=== PATIENT | female | born 1970 | race African-American/Black ===

== ENCOUNTER → 2023-07-10 | Outpatient (CLI) | payer MEDICARE ==
[2023-07-10 15:10] VITALS: BP 169/101; PULSE 79; RESP 16; TEMP 98.3; BMI 53.2
--- NOTE | 2023-07-10 15:32 | P.HPBAR ---
Bariatric H&P - History & Physicial H&P Date: 07/10/23 History & Physicial: Visit/CC: Initial Consult Patient initial contact: Initial weight: 145.15 kg Initial weight in pounds: 320.00 Height: 5 ft 5 in Initial BMI: 53.2 Last weight: Current weight: 145.15 kg Current weight in pounds: 320.00 Current BMI: 53.2 [place] body weight (based on NIH guidelines): 56.699 kg Excess body weight loss: 0.0% The patient is a 52 year-old F who presents for Bariatric Assessment. Patient here to discuss weight loss surgery. She is interested in sleeve gastrectomy. She is here today with her daughter. BMI today is 53. Suffers from hypertension, hypercholesterolemia, joint pain. Did well with Mounjaro and lost 30 pounds but unfortunately gained it all back. Denies GERD. No tobacco use. No history of DVT or dysphagia. No recent EGD. Patient states she had a recent stress test and EKG that was normal. Surgical history includes hysterectomy and knee surgery. No known hernias. Review of Systems The patient denies any acute changes in vision or hearing, no dysphagia or odynophagia, no chest pain or shortness of breath, no dysuria or hematuria, no headache, no runny nose, no rectal bleeding or melena, no unexplained weight loss Past Medical History Smoking Status: Unknown if ever smoked Surgical - Exam Vital Signs Temp Pulse Resp BP 98.3 F 79 16 169/101 07/10/23 14:21 07/10/23 14:21 07/10/23 14:21 07/10/23 14:21 Physical exam: General: Well-developed, well-nourished HEENT: Normocephalic, sclerae nonicteric Abdomen: Nontender, nondistended Extremities: No edema Neuro: Alert and oriented Bariatric Assessment & Plan (1) Morbid obesity with BMI of 50.0-59.9, adult Narrative/Plan: 52-year-old female with morbid obesity and associated comorbidities. Patient is interested in sleeve gastrectomy. Patient and I discussed the surgical options including both sleeve gastrectomy and bypass in detail. Risks and benefits reviewed as well. Will proceed with upper endoscopy preoperatively. Will obtain medical clearance and medical support documentation. Status: Acute Bariatric Checklist Checklist: Plan: Checklist: EGD: 1. Hiatal hernia: 2. H. Pylori: HgbA1c: Vitamin D: Smoking: Primary care physician referral: Psychiatry clearance: Cardiology clearance: Sleep study: Diet journal: VTE risk score: VTE risk level: Rehab needs at discharge:
[2023-07-10 19:17] LABS: HCT 39.9 % (37.2-46.3); HGB 12.2 g/dL (12.0-15.0); MCH 26.7 pg (27.0-32.0); MCHC 30.6 g/dL (32.0-37.0); MCV 87.3 FL (80.0-97.0); Mean Platelet Volume 10.2 FL (9.5-12.2); NRBC Per 100 WBC 0 X 10*3/uL (0.00-0.01); Platelet Count 247 X 10*3/uL (140-440); RBC 4.57 X 10*6/uL (4.10-5.20); RDW 15.3 % (11.5-14.5)
[2023-07-10 19:57] LABS: ALT 17 U/L (8-44); AST 21 U/L (13-35); Albumin 3.8 g/dL (3.8-4.9); Albumin/Globulin Ratio 1.23 Ratio (1.60-3.17); Alkaline Phosphatase 76 U/L (41-126); BUN/Creat Ratio 22.57 Ratio (12.00-20.00); Blood Urea Nitrogen 15.8 mg/dL (9.0-27.0); Calcium 9.8 mg/dL (8.7-10.3); Carbon Dioxide 27.3 mmol/L (21.6-31.8); Chloride 106 mmol/L (96-109); Globulin 3.1 g/dL (1.6-3.3); Glucose 80 mg/dL (70-110); Iron 53 UG/DL (50-170); Potassium 3.5 mmol/L (3.5-5.5); Sodium 144 mmol/L (135-145); Total Bilirubin <0.2 mg/dL (0.3-1.2); Total Protein 6.9 g/dL (6.2-8.2)
[2023-07-12 13:53] LABS: Anabasine Urine <2.0 ng/mL (<2.0)
== END ==
LOC: BARWHC3 13:36
PROVIDERS: ATTEND Surgery
DX: E66.01 Morbid (severe) obesity due to excess calories (principal); K90.89 Other intestinal malabsorption; E55.9 Vitamin D deficiency, unspecified; Z90.710 Acquired absence of both cervix and uterus; Z98.890 Other specified postprocedural states; Z68.43 Body mass index [BMI] 50.0-59.9, adult
CPT/HCPCS: 84425; 80053; 82607; 82746; 83540; 85027; 82306; 83036; 93005; G0480; G0463; 80323; 99212

== ENCOUNTER 2023-10-21 09:45 | Day surgery (SDC) | payer MEDICARE ==
[~2023-10-21 09:45] MED LIST: LACTATED RINGERS 1,000 ML BAG ONE; LIDOCAINE HCL/PF 20 MG/ML 10 ML AMP ONE; PROPOFOL 10 MG/ML 20 ML VIAL IV ONE
--- NOTE | 2023-10-24 15:56 | PCN ---
PROCEDURE NOTE PREOPERATIVE DIAGNOSIS: Gastroesophageal reflux disease, presurgical. POSTOPERATIVE DIAGNOSES: 1. Gastritis with erosions. 2. Small hiatal hernia. PROCEDURE: Esophagogastroduodenoscopy with biopsy. ANESTHESIA: Sedation. COMPLICATIONS: None. OPERATIVE PROCEDURE: The patient was brought and placed on the operating table in left decubitus position. The patient was sedated per Anesthesia at that time. The Olympus gastroscope was inserted through the oropharynx and passed under direct visualization to the 3rd portion of the duodenum. At that point, we slowly withdrew the scope, inspecting all surfaces carefully. There were no neoplastic, inflammatory, or polypoid lesions seen throughout the duodenum. The pylorus was widely patent. The scope was carefully inspected including retroflexion. In the antrum, there was noted to be gastritis with a few small superficial erosions. Biopsy was taken. Retroflexion revealed normal- appearing hiatus. When the scope was withdrawn into the esophagus; however, a small 1 cm hiatal hernia was seen. The GE junction was normal. The remainder of the esophagus appeared normal. PLAN: 1. Resume diet. 2. Await results. 3. Begin antiplatelet therapy. 4. Follow up in bariatric center. MMODL / IJN: [id number] /
== END 2023-10-21 09:56 ==
LOC: ORWHC2ENDO 09:45
PROVIDERS: ATTEND Surgery
DX: K29.50 Unspecified chronic gastritis without bleeding (principal); B96.81 Helicobacter pylori [H. pylori] as the cause of diseases classified elsewhere; K21.9 Gastro-esophageal reflux disease without esophagitis; K44.9 Diaphragmatic hernia without obstruction or gangrene; I10 Essential (primary) hypertension; E78.5 Hyperlipidemia, unspecified; E07.9 Disorder of thyroid, unspecified; Z79.899 Other long term (current) drug therapy
CPT/HCPCS: 43239; 88305; 88342

== ENCOUNTER → 2023-11-11 | Outpatient (CLI) | payer MEDICARE ==
--- NOTE | 2023-11-11 15:03 | P.BASOAP ---
Subjective Progress Note Date: 11/11/23 Principal diagnosis: Morbid obesity Patient returns for recheck. Underwent recent EGD showing gastritis with erosions and small hiatal hernia. Biopsies show H. pylori. Patient's daughter also had H. pylori. Otherwise doing well. Started her antibiotic regimen 2 days ago. Objective - Exam Abdomen: Soft, nontender, nondistended Assessment/Plan (1) Morbid obesity with BMI of 50.0-59.9, adult Narrative/Plan: 53-year-old female doing well after recent EGD. Pathology findings reviewed. Continue H. pylori treatment. Plan rechecking urea breath test 2 [address] completion of medications. We reviewed the surgical consent form for laparoscopic robotic assisted sleeve gastrectomy. All questions answered. Patient is agreeable with proceeding with surgery after H. pylori clear. Continue antiacids for gastritis. The risks of bleeding, infection, stenosis, stricture, leak, abscess, fistula formation, peritonitis, poor weight loss, reflux, vomiting, conversion to an open procedure, aborting sleeve gastrectomy, [place], PE, DVT, and were discussed. The patient understands and wishes to proceed. Plan: Date: Initial Weight: 145.15 kg Initial BMI: Current Weight: Current BMI: Type of Surgery: Total Volume in Band: Previous Volume: Volume Removed: Volume Added: Band Size:
[2023-11-12 08:23] VITALS: BP 134/85; PULSE 34; TEMP 97.2; BMI 52.7
== END ==
LOC: BARWHC3 14:32
PROVIDERS: ATTEND Surgery
CPT/HCPCS: 99211

== ENCOUNTER → 2023-12-10 | Outpatient (CLI) | payer MEDICARE ==
[2023-12-10 10:24] VITALS: BMI 51.7
[2023-12-10 10:28] VITALS: BP 119/84; PULSE 74; RESP 16; TEMP 98
== END ==
LOC: BARWHC3 10:08
PROVIDERS: ATTEND Surgery
DX: E66.01 Morbid (severe) obesity due to excess calories (principal); Z91.013 Allergy to seafood; Z68.43 Body mass index [BMI] 50.0-59.9, adult
CPT/HCPCS: 99211

== ENCOUNTER → 2024-01-27 | Outpatient (CLI) | payer MEDICARE ==
[2024-01-28 02:36] LABS: Basophils # (A) 0.02 X 10*3/uL (0.00-0.10); Basophils % (A) 0.3 %; Eosinophils # (A) 0.05 X 10*3/uL (0.04-0.35); Eosinophils % (A) 0.7 %; HCT 42.7 % (37.2-46.3); HGB 13.1 g/dL (12.0-15.0); Lymphocytes # (A) 2.06 X 10*3/uL (0.90-5.00); Lymphocytes % (A) 29.4 %; MCH 26.7 pg (27.0-32.0); MCHC 30.7 g/dL (32.0-37.0); MCV 87.1 FL (80.0-97.0); Mean Platelet Volume 10.7 FL (9.5-12.2); Monocytes # (A) 0.46 X 10*3/uL (0.20-1.00); Monocytes % (A) 6.6 %; NRBC Per 100 WBC 0 X 10*3/uL (0.00-0.01); Neutrophils # (A) 4.39 X 10*3/uL (1.80-7.70); Neutrophils % (A) 62.7 %; Platelet Count 288 X 10*3/uL (140-440); RDW 14.7 % (11.5-14.5)
[2024-01-28 02:59] LABS: ALT 18 U/L (8-44); AST 15 U/L (13-35); Albumin/Globulin Ratio 1.14 Ratio (1.60-3.17); Alkaline Phosphatase 83 U/L (41-126); BUN/Creat Ratio 14.82 Ratio (12.00-20.00); Blood Urea Nitrogen 16.3 mg/dL (9.0-27.0); Calcium 9.7 mg/dL (8.7-10.3); Chloride 103 mmol/L (96-109); Globulin 3.5 g/dL (1.6-3.3); Glucose 101 mg/dL (70-110); Potassium 3.4 mmol/L (3.5-5.5); Sodium 145 mmol/L (135-145); Total Bilirubin 0.2 mg/dL (0.3-1.2); Total Protein 7.5 g/dL (6.2-8.2)
== END | disposition home or self-care (01) ==
LOC: LABWHC1 16:34
PROVIDERS: ATTEND Surgery
DX: Z01.812 Encounter for preprocedural laboratory examination (principal)
CPT/HCPCS: 80053; 85025; 86850; 86900; 86901

== ENCOUNTER 2024-02-02 13:07 | Inpatient (IN) | payer MEDICARE ==
[2024-02-02] MEDS: IV FLUID CONTINUATION 1,000 ML IV ONE (13:35)
[2024-02-02] MEDS: ENOXAPARIN 40 MG/0.4 ML SYRINGE SQ PRN (13:51)
[2024-02-02] MEDS: ONDANSETRON 4 MG/2 ML VIAL IVP PRN ×2 (13:51→18:24)
[2024-02-02] MEDS: ACETAMINOPHEN TAB 500 MG TAB PO PRN (13:51)
[2024-02-02] MEDS: LACTATED RINGERS 1,000 ML BAG IV STA (13:52)
[2024-02-02] MEDS: DEXAMETHASONE SOD PHOSPHATE 4 MG/ML 1 ML VIAL IVP STA (13:52)
--- NOTE | 2024-02-02 13:53 | P.GSHP ---
History of Present Illness H&P Date: 02/02/24 Chief Complaint: Morbid obesity 53-year-old female here for elective laparoscopic sleeve gastrectomy. Patient was first seen in the bariatric center in July. Patient with complaints of hypertension, hypercholesterolemia, joint pain. Patient during recent EGD found to have a small hiatal hernia. She was treated for H. pylori positivity. Non- smoker. BMI 53 when first seen. Today BMI 50. Past Medical History Past Medical History: Hyperlipidemia, Hypertension Additional Past Medical History / Comment(s): ANEMIA PRIOR AND POST HYSTERECTOMY, NO CURRENT ISSUES. History of Any Multi-Drug Resistant Organisms: None Reported Past Surgical History: Hysterectomy, Orthopedic Surgery Additional Past Surgical History / Comment(s): Bilateral arthroscopic knee surgery. Past Anesthesia/Blood Transfusion Reactions: No Reported Reaction Additional Past Anesthesia/Blood Transfusion Reaction / Comment(s): Has had blood transfusion, no reactions. Smoking Status: Never smoker - Past Family History Father Family Medical History: Hypertension Medications and Allergies Home Medications Medication Instructions Recorded Confirmed Type Atorvastatin [Lipitor] 20 mg PO HS 07/23/23 02/02/24 History Ibuprofen [Advil] 200 - 400 mg PO Q6H PRN 08/22/23 01/26/24 History hydroCHLOROthiazide 12.5 mg PO HS 01/26/24 02/02/24 History Allergies Allergy/AdvReac Type Severity Reaction Status Date / Time shellfish derived [Shellfish] Allergy Swelling Verified 02/02/24 13:30 Surgical - Exam Vital Signs Temp Pulse Resp BP Pulse Ox 97.3 F L 87 18 148/90 100 02/02/24 13:30 02/02/24 13:30 02/02/24 13:30 02/02/24 13:30 02/02/24 13:30 Physical exam: General: Well-developed, well-nourished HEENT: Normocephalic, sclerae nonicteric Abdomen: Nontender, nondistended Extremities: No edema Neuro: Alert and oriented Assessment and Plan (1) Morbid obesity with BMI of 50.0-59.9, adult Narrative/Plan: 53-year-old female with morbid obesity. BMI 50. Will proceed with laparoscopic da Ronnell assisted sleeve gastrectomy, possible hiatal hernia repair, possible open at this time. The risks of bleeding, infection, stenosis, stricture, leak, abscess, fistula formation, peritonitis, poor weight loss, reflux, vomiting, conversion to an open procedure, aborting sleeve gastrectomy, [place], PE, DVT, and were discussed. The patient understands and wishes to proceed. Current Visit: No Status: Acute Code(s): E66.01 - MORBID (SEVERE) OBESITY DUE TO EXCESS CALORIES; Z68.43 - BODY MASS INDEX [BMI] 50.0-59.9, ADULT SNOMED Code(s): 943755944
[2024-02-02] MEDS ORDERED: NEOSTIGMINE 1 MG/ML 10 ML VIAL ONE (14:21)
[2024-02-02] MEDS ORDERED: GLYCOPYRROLATE 0.2 MG/ML 2 ML VIAL ONE (14:21)
[2024-02-02] MEDS ORDERED: PROPOFOL 10 MG/ML 20 ML VIAL IV ONE (14:21)
[2024-02-02] MEDS ORDERED: ROCURONIUM 10 MG/ML (5 ML VIAL) IV ONE (14:21)
[2024-02-02] MEDS ORDERED: fentaNYL (PF) 50 MCG/ML 2 ML AMP ONE (14:21)
[2024-02-02] MEDS ORDERED: SUCCINYLCHOLINE CHLORIDE 200 MG/10 ML VIAL IV ONE (14:21)
[2024-02-02] MEDS ORDERED: LIDOCAINE 1% INJ 10MG/ML (20 ML MDV) ONE (14:21)
[2024-02-02] MEDS ORDERED: MIDAZOLAM 2 MG/2 ML VIAL ONE (14:21)
[2024-02-02] MEDS: ceFAZolin 3 GM in SODIUM CHLORIDE 0.9% 100 ML IVPB PRN (14:23)
[2024-02-02] MEDS: BUPIVACAINE (PF) 0.25% 30 ML VIAL SQ ONE (14:44)
[2024-02-02] MEDS: LACTATED RINGERS 1,000 ML IV ONE (16:06)
[2024-02-02] MEDS ORDERED: NALOXONE 0.4 MG/ML 1 ML VIAL IV PRN (16:35)
[2024-02-02] MEDS ORDERED: diphenhydrAMINE 50 MG/ML 1 ML VIAL IVP PRN (16:35)
--- NOTE | 2024-02-02 16:43 | P.OP ---
Date of Procedure: 02/02/24 Procedure(s) Performed: PREOPERATIVE DIAGNOSIS: Morbid obesity, hypertension, hiatal hernia POSTOPERATIVE DIAGNOSIS: Same PROCEDURE: Da Ronnell assisted laparoscopic sleeve gastrectomy with repair hiatal hernia SURGEON: Beny EBL: Minimal ANESTHESIA: General COMPLICATIONS: None OPERATIVE PROCEDURE: Patient was placed in the operating table in the supine position. The patient was then placed under general anesthesia at that time. The abdomen was prepped and draped in the usual sterile fashion. A 5 mm optical trocar was placed in the left upper quadrant 20 cm inferior to the xiphoid process. Insufflation took place up to 15 mmHg. No adhesions were seen. A 5 mm subxiphoid incision was made and the medium Amado retractor was used to elevate the left lobe of liver anteriorly. This was held in place using the fixed arm retractor. An additional 12 mm trocar was placed in the right paramedian location and 2 additional 8 mm trochars were placed in the left upper quadrant one medial and one lateral to the initially placed optical trocar. All of these trochars were placed along the same plane. The initial 5 was then switched to an 8 mm trocar. The robot was then docked appropriately. The 8 mm camera was placed in the left paramedian trocar site down viewing. A fenestrated bipolar was placed in arm 1, arm 3 had the vessel sealer, arm 4 had the small grasper retractor. At that point I moved to the distal aspect of the greater curvature the stomach. The short gastric vasculature were divided using the vessel sealer. This dissection took place distally until we were 4 cm from the pylorus. The posterior adhesions were divided as well. The dissection then took place proximally along the stomach until the posterior short gastrics were divided and the fundus of the stomach was fully mobilized. Following that the hiatal hernia was addressed. This was a small sliding hiatal hernia. The GE junction was present very close to the diaphragmatic hiatus. Circumferentially the phrenoesophageal ligament was divided. Blunt dissection mobilized the distal aspect of the esophagus. Both adonis posteriorly were well-visualized at this point. I opted to close the crura after completion of the sleeve gastrectomy. The blunt tipped 40-Portuguese bougie dilator was advanced into the stomach and advanced all the way to the prepyloric location. The patient's stomach by palpation seemed to be of average thickness. The first firing of the stapler was a green load 60. Second load was a blue load 60. The next 3 loads were blue load 60 with seam guard. There was a small less than 1 cm section was then divided using a white load stapler. The stomach was placed in the right upper quadrant. The dilator was removed. The oral gastric tube was reinserted. The stomach was insufflated with approximately 100 mL of methylene blue. No evidence of leak or obstruction was seen. Pressure was then dropped to 8 mm for 2-3 minutes. The staple line was inspected and 2 small areas of oozing was identified and controlled using the bipolar cautery. No further bleeding was seen. Next the crura was reapproximated posteriorly using a short running 2 oh V-Loc suture nonabsorbable. Tisseel fibrin glue was then used along the length of the staple line and hiatus. The robot was then undocked. The da Ronnell laparoscope was used and the stomach was removed from the 12 mm trocar site without difficulty. That area was then irrigated with saline. The fascia at the 12mm site was closed using [id number] 0 Vicryl sutures with the laparoscopic suture passer and Gurjit Poornima technique. The insufflation was evacuated. The skin at all 5 incisions were closed using 4-0 Monocryl sutures. Skin glue was then applied. DISPOSITION: Stable to recovery room
[2024-02-02] MEDS: HYDROmorphone 0.5 MG/0.5 ML SYRINGE IVP PRN (17:05)
[2024-02-02] MEDS: LACTATED RINGERS 1,000 ML IV SCH (17:20)
[2024-02-02] MEDS: DEXAMETHASONE SOD PHOSPHATE 4 MG/ML 1 ML VIAL IV ONE (18:02)
[2024-02-02] MEDS: ONDANSETRON 4 MG/2 ML VIAL IVP ONE (18:02)
[2024-02-02] MEDS: HYDROmorphone 1 MG/ML 1 ML SYRINGE IVP PRN (18:27)
[2024-02-02] MEDS: ACETAMINOPHEN IV (For NPO) 1,000 MG in EMPTY BAG 1 BAG IVPB SCH (18:32)
[2024-02-02] MEDS: ALBUTEROL NEBULIZED 2.5 MG/3 ML INHALATION SCH (21:08)
[2024-02-02] MEDS: 0.9% NACL WITH KCL 20 MEQ/L 1,000 ML IV SCH (21:13)
[2024-02-02] MEDS: DEXAMETHASONE SOD PHOSPHATE 4 MG/ML 1 ML VIAL IVP SCH (23:39)
[2024-02-03] MEDS: SIMETHICONE 40 MG/0.6 ML DROPS 2,000 MG/30 ML BOTTLE PO PRN (04:49)
[2024-02-03] MEDS: ENOXAPARIN 40 MG/0.4 ML SYRINGE SQ SCH (05:59)
[2024-02-03] MEDS: PANTOPRAZOLE 40 MG/10 ML VIAL IV SCH (07:31)
[2024-02-03] MEDS: 0.9% NACL WITH KCL 20 MEQ/L 1,000 ML IV SCH (07:31)
[2024-02-03 08:20] LABS: African American GFR (CKD) >90 (>60 ml/min/1.73 sqM); Anion Gap 6 mmol/L; Blood Urea Nitrogen 15 mg/dL (7-17); Carbon Dioxide 30 mmol/L (22-30); Chloride 101 mmol/L (98-107); Magnesium 1.7 mg/dL (1.6-2.3); Non-African American GFR(CKD) >90 (>60 ml/min/1.73 sqM); Potassium 4.1 mmol/L (3.5-5.1); Sodium 137 mmol/L (137-145)
[2024-02-03 10:16] LABS: Basophils # (A) 0.01 X 10*3/uL (0.00-0.10); Basophils % (A) 0.1 %; Eosinophils # (A) 0 X 10*3/uL (0.04-0.35); Eosinophils % (A) 0 %; HCT 40.8 % (37.2-46.3); HGB 12.6 g/dL (12.0-15.0); Lymphocytes # (A) 0.53 X 10*3/uL (0.90-5.00); Lymphocytes % (A) 5.2 %; MCH 26.3 pg (27.0-32.0); MCHC 30.9 g/dL (32.0-37.0); MCV 85.2 FL (80.0-97.0); Mean Platelet Volume 10.3 FL (9.5-12.2); Monocytes # (A) 0.12 X 10*3/uL (0.20-1.00); Monocytes % (A) 1.2 %; NRBC Per 100 WBC 0 X 10*3/uL (0.00-0.01); Neutrophils # (A) 9.56 X 10*3/uL (1.80-7.70); Neutrophils % (A) 93.1 %; Platelet Count 291 X 10*3/uL (140-440); RBC 4.79 X 10*6/uL (4.10-5.20); RDW 14.1 % (11.5-14.5); WBC 10.26 X 10*3/uL (4.50-10.00)
--- NOTE | 2024-02-03 10:20 | P.CONS ---
History of Present Illness - Reason for Consult Consult date: 02/03/24 Medical management - Chief Complaint Laparoscopic sleeve gastrectomy - History of Present Illness Patient is a 53-year-old female with known history of hypertension, hyperlipidemia, morbid obesity, anemia with history of hysterectomy and bilateral arthroscopic knee surgery. Patient was admitted to hospital for elective sleeve gastrectomy.. Patient is status post da Ronnell assisted laparoscopic sleeve gastrectomy with repair of hiatal hernia. Patient tolerated procedure well. Currently does have minimal nausea. Started on liquid diet. No complaints of chest pain or shortness breath. Pain is controlled. No fever no chills. Blood pressure 126/83 pulse 70 respiration 15 and pulse ox 94% on room air. Laboratory data showed WBC 10.2 hemoglobin 12.6 and platelets 291 sodium 137 potassium 4.1 chloride 101 bicarb is 13 BUN 15 and creatinine 0.72 and magnesium 1.7. Patient is receiving Decadron 4 mg IV every 6 hourly. Review of Systems Constitutional: Patient denies any fever or chills . No generalized weakness or weight loss. Abdomen: Patient does have nausea. No vomiting. No complaints of abdominal pain. Cardiovascular: Patient denies any chest pain or short of breath no palpitations. Respiratory: patient denied any cough or sputum production. No shortness of breath Neurologic: Patient denied any numbness or tingling. no headache. Musculoskeletal: Patient denies any complaints of joint swelling or deformity. Skin: Negative Psychiatric: Negative Endocrine: No heat or cold intolerance. No recent weight gain. Genitourinary: No dysuria or hematuria. All other 14 point ROS negative except the above Past Medical History Past Medical History: Hyperlipidemia, Hypertension Additional Past Medical History / Comment(s): ANEMIA PRIOR AND POST HYSTERECTOMY, NO CURRENT ISSUES. History of Any Multi-Drug Resistant Organisms: None Reported Past Surgical History: Hysterectomy, Orthopedic Surgery Additional Past Surgical History / Comment(s): Bilateral arthroscopic knee surgery. Past Anesthesia/Blood Transfusion Reactions: No Reported Reaction Additional Past Anesthesia/Blood Transfusion Reaction / Comm: Has had blood transfusion, no reactions. Past Psychological History: No Psychological Hx Reported Smoking Status: Never smoker Past Alcohol Use History: None Reported Past Drug Use History: None Reported - Past Family History Father Family Medical History: Hypertension Medications and Allergies Home Medications Medication Instructions Recorded Confirmed Type Atorvastatin [Lipitor] 20 mg PO HS 07/23/23 02/02/24 History Ibuprofen [Advil] 200 - 400 mg PO Q6H PRN 08/22/23 01/26/24 History hydroCHLOROthiazide 12.5 mg PO HS 01/26/24 02/02/24 History Allergies Allergy/AdvReac Type Severity Reaction Status Date / Time shellfish derived [Shellfish] Allergy Swelling Verified 02/02/24 13:30 Physical Exam Vitals: Vital Signs Temp Pulse Pulse Resp BP Pulse Ox FiO2 02/03/24 07:57 98 21 02/03/24 07:27 97.8 F 87 15 144/88 97 02/03/24 02:31 138/89 02/03/24 01:35 97.4 F L 100 16 161/110 100 02/02/24 20:22 101 H 137/90 96 02/02/24 20:07 98 142/91 97 02/02/24 19:52 98 144/91 95 02/02/24 19:37 95 157/100 97 02/02/24 19:22 101 H 154/95 96 02/02/24 19:07 99 150/92 96 02/02/24 18:52 94 160/98 98 02/02/24 18:37 99 159/95 97 02/02/24 18:24 94 159/96 60 L 02/02/24 18:22 97.3 F L 95 168/114 100 02/02/24 18:00 99 17 157/83 98 02/02/24 17:45 94 16 160/86 98 02/02/24 17:30 96 17 159/85 98 02/02/24 17:18 97.3 F L 95 18 159/96 99 02/02/24 17:15 94 18 158/87 97 02/02/24 17:00 96 16 155/79 100 02/02/24 16:49 98.6 F 102 H 14 148/90 100 02/02/24 13:30 97.3 F L 87 18 148/90 100 Intake and Output 02/02/24 02/03/24 02/03/24 22:59 06:59 14:59 Intake Total 100 Output Total 20 Balance 80 Intake: IV 100 Output: Estimated Blood Loss 20 Other: # Voids 1 2 Weight 137.3 kg PHYSICAL EXAMINATION: Patient is lying in the bed comfortably, no acute distress, awake alert and oriented.. HEENT: Normocephalic. Neck is supple. Pupils reactive. Nostrils clear. Oral cavity is moist. Neck reveals no JVD, carotid bruits, or thyromegaly. CHEST EXAMINATION: Trachea is central. Symmetrical expansion. Bibasilar diminished sounds otherwise lung english clear to auscultation and percussion. CARDIAC: Normal S1, S2 with no gallops. No murmurs ABDOMEN: Soft. Bowel sounds normal. No organomegaly. No abdominal bruits. Extremities: reveal no edema. No clubbing or cyanosis Neurologically awake, alert, oriented x3 with well-coordinated movements. No focal deficits noted Skin: No rash or skin lesions. Psychiatric: Coperative. Nonsuicidal Musculoskeletal: No joint swelling or deformity. Normal range of motion. Results CBC & Chem 7: 02/03/24 07:22 02/03/24 07:22 Labs: Abnormal Lab Results - Last 24 Hours (Table) 02/03/24 Range/Units 07:22 WBC 10.26 H (4.50-10.00) X 10*3/uL MCH 26.3 L (27.0-32.0) pg MCHC 30.9 L (32.0-37.0) g/dL Neutrophils # 9.56 H (1.80-7.70) X 10*3/uL Lymphocytes # 0.53 L (0.90-5.00) X 10*3/uL Monocytes # 0.12 L (0.20-1.00) X 10*3/uL Eosinophils # 0 L (0.04-0.35) X 10*3/uL Assessment and Plan Assessment: Status post da Ronnell assisted laparoscopic sleeve gastrectomy with repair of h iatal hernia. Postoperative day 1 Mild leukocytosis likely postsurgical in remission Hypertension. Controlled. Morbid obesity BMI 50.4 GI and DVT prophylaxis as per primary team Plan: Patient will be continued on IV hydration. Symptomatic management for nausea. Pain management. Patient is currently tolerating clear liquid diet. Encourage incentive spirometry. Will hold hydrochlorothiazide until patient tolerates oral diet. Continue to monitor blood pressure closely. Restarted Lipitor. Will continue to follow and further recommendations based on clinical course. Thank you kindly for your consult.
[2024-02-03] MEDS: KETOROLAC 15 MG/ML 1 ML VIAL IVP SCH (10:22)
[2024-02-03] MEDS: SIMETHICONE 40 MG/0.6 ML DROPS 2,000 MG/30 ML BOTTLE PO SCH (10:23)
--- NOTE | 2024-02-03 10:28 | FL ---
EXAMINATION TYPE: FL UGI DATE OF EXAM: 02/03/2024 COMPARISON: None CLINICAL INDICATION: Female, 53 years old with history of Post Op Bariatric Surgery; [facility], reported sl eeve gastrectomy and hiatal hernia repair TECHNIQUE: A single contrast UGI study is performed with 50 mL Isovue 370 contrast. A total of 1 mi nute 19 seconds of fluoroscopic time was utilized during procedure and 16 images obtained. Total dose area product (DAP) in uGy*m?, mGy*cm? (or similar): 9-3.2. FINDINGS: No evidence for free intraperitoneal air. The patient swallowed oral contrast without difficulty or delay. There is prompt passage of contrast from the esophagus into the stomach with postsurgical change of sleeve gastrectomy demonstrated. Ther e is no obstruction. No residual hiatal hernia seen. No extravasation of contrast to suggest leak. There is progressive accumulation of contrast in the st omach but with delayed passage into the duodenum. A 5 minute post procedure radiograph shows adequate passage into the proximal small bowel loops. IMPRESSION: Status post sleeve gastrectomy and hiatal hernia repair. No evidence for obstruction or leak. No free air. [facility], , 02/03/2024 10:26 AM
[2024-02-03] MEDS: SCOPOLAMINE 1 MG/72 HR PATCH TRANSDERM SCH (10:33)
--- NOTE | 2024-02-03 11:25 | P.PN ---
Subjective Progress Note Date: 02/03/24 SURGICAL PROGRESS NOTE CHIEF COMPLAINT: Morbid obesity HISTORY OF PRESENT ILLNESS: Postop day #1 status post laparoscopic sleeve gastrectomy with repair of hiatal hernia. Patient complains of epigastric pain with nausea. She reports having dry heaves last night. That has improved. No flatus. She did ambulate in the hallway. Denies any difficulty urinating. Afebrile. Mild tachycardia at night now improved. WBC 10.26 Hgb 12.6 platelets 291 sodium 137 potassium 4.1 creatinine 0.72 magnesium 1.7. Upper GI completed reported no evidence of obstruction or leak PHYSICAL EXAM: VITAL SIGNS: Reviewed. GENERAL: Well-developed in no acute distress. ABDOMEN: Soft. Nondistended. Epigastric tenderness. Incision sites clean dry and intact NEUROLOGIC: Alert and oriented. Cranial nerves II through XII grossly intact. ASSESSMENT: 1. Morbid obesity, hypertension and hiatal hernia PLAN: -Advance diet to bariatric clears -Continue IV fluids -Scopolamine patch added for nausea -Toradol scheduled added for pain -Gas drops changed to scheduled to help with pain -Encourage patient to ambulate -Encourage patient to use incentive spirometer -DVT prophylaxis Lovenox and GI prophylaxis Protonix Physician Stave Machine Tender note has been reviewed by physician. Signing provider agrees with the documented findings, assessment, and plan of care. I have personally seen and examined the patient, reviewed the MICROWAVE SUPERVISOR /PAs history, exam and MDM and agree with the assessment and plan as written. Based on total visit time, I have performed more than 50% of the visit. As above: Patient doing better now. Had some discomfort and nausea overnight. Labs noted. Patient's upper GI shows no leak or obstruction. Tolerating liquids now. She was ambulating in the hallways. Keep overnight. Continue IV hydration. Continue bariatric clears. Objective - Vital Signs Vital signs: Vital Signs Temp 97.8 F 02/03/24 07:27 Pulse 87 02/03/24 07:27 Resp 15 02/03/24 07:27 BP 144/88 02/03/24 07:27 Pulse Ox 98 02/03/24 07:57 FiO2 21 02/03/24 07:57 Intake & Output 02/02/24 02/03/24 02/03/24 18:59 06:59 18:59 Intake Total 1600 Output Total 20 Balance 1580 Weight 137.3 kg Intake: IV 1600 Output: Estimated Blood Loss 20 Other: # Voids 1 2 - Labs CBC & Chem 7: 02/03/24 07:22 02/03/24 07:22 Labs: Abnormal Lab Results - Last 24 Hours (Table) 02/03/24 Range/Units 07:22 WBC 10.26 H (4.50-10.00) X 10*3/uL MCH 26.3 L (27.0-32.0) pg MCHC 30.9 L (32.0-37.0) g/dL Neutrophils # 9.56 H (1.80-7.70) X 10*3/uL Lymphocytes # 0.53 L (0.90-5.00) X 10*3/uL Monocytes # 0.12 L (0.20-1.00) X 10*3/uL Eosinophils # 0 L (0.04-0.35) X 10*3/uL
[2024-02-03] MEDS: HYOSCYAMINE ORAL DROPS 1.875 MG/15 ML BOTTLE PO PRN (11:35)
[2024-02-03 14:46] VITALS: BMI 50.3
[2024-02-03] MEDS: HYDROmorphone 0.5 MG/0.5 ML SYRINGE IVP PRN (15:07)
[2024-02-03] MEDS: ATORVASTATIN 20 MG TAB PO SCH (20:58)
[2024-02-04] MEDS ORDERED: bisacodyL 5 MG TABLET.DR PO PRN (08:00)
[2024-02-04 08:33] LABS: BUN/Creat Ratio 19.12 Ratio (12.00-20.00); Blood Urea Nitrogen 15.3 mg/dL (9.0-27.0); Calcium 8.7 mg/dL (8.7-10.3); Carbon Dioxide 23.1 mmol/L (21.6-31.8); Chloride 104 mmol/L (96-109); Glucose 114 mg/dL (70-110); Potassium 3.9 mmol/L (3.5-5.5); Sodium 139 mmol/L (135-145)
[2024-02-04 08:35] LABS: Basophils # (A) 0 X 10*3/uL (0.00-0.10); Basophils % (A) 0 %; Eosinophils # (A) 0 X 10*3/uL (0.04-0.35); Eosinophils % (A) 0 %; HCT 36.3 % (37.2-46.3); HGB 11.2 g/dL (12.0-15.0); Lymphocytes % (A) 7.4 %; MCH 26.5 pg (27.0-32.0); MCHC 30.9 g/dL (32.0-37.0); Mean Platelet Volume 11.2 FL (9.5-12.2); Monocytes # (A) 0.24 X 10*3/uL (0.20-1.00); NRBC Per 100 WBC 0 X 10*3/uL (0.00-0.01); Neutrophils # (A) 7.18 X 10*3/uL (1.80-7.70); Platelet Count 244 X 10*3/uL (140-440); RBC 4.22 X 10*6/uL (4.10-5.20); RDW 14.3 % (11.5-14.5); WBC 8.07 X 10*3/uL (4.50-10.00)
--- NOTE | 2024-02-04 13:19 | P.PN ---
Subjective Progress Note Date: 02/04/24 SURGICAL PROGRESS NOTE CHIEF COMPLAINT: Morbid obesity HISTORY OF PRESENT ILLNESS: Postop day #2 status post laparoscopic sleeve gastrectomy with repair of hiatal hernia. Patient reports her nausea and pain are improving. She does report some sticking in her throat when she drinks. She is only taken in a small amount of her liquids. Afebrile. WBC is down from 10-8.07 Hgb 11.2 platelets 244 PHYSICAL EXAM: VITAL SIGNS: Reviewed. GENERAL: Well-developed in no acute distress. ABDOMEN: Soft. Nondistended. Incision sites clean dry and intact NEUROLOGIC: Alert and oriented. Cranial nerves II through XII grossly intact. ASSESSMENT: 1. Morbid obesity, hypertension and hiatal hernia PLAN: -Continue bariatric clear liquid diet -Encourage patient to take smaller sips of liquids -Continue IV fluids -Encourage patient to ambulate -Encourage patient to use incentive spirometer -Anticipate discharge tomorrow -DVT prophylaxis Lovenox and GI prophylaxis Protonix Physician Alteration Inspector note has been reviewed by physician. Signing provider agrees with the documented findings, assessment, and plan of care. Objective - Vital Signs Vital signs: Vital Signs Temp 98 F 02/04/24 07:44 Pulse 52 L 02/04/24 09:37 Resp 18 02/04/24 09:37 BP 129/75 02/04/24 07:44 Pulse Ox 91 L 02/04/24 07:44 FiO2 21 02/03/24 07:57 Intake & Output 02/03/24 02/04/24 02/04/24 18:59 06:59 18:59 Weight 137.3 kg Other: Voiding Method Toilet Toilet # Voids 3 2 - Labs CBC & Chem 7: 02/04/24 02:20 02/04/24 02:20 Labs: Abnormal Lab Results - Last 24 Hours (Table) 02/04/24 02/04/24 Range/Units 02:20 02:20 Hgb 11.2 L (12.0-15.0) g/dL Hct 36.3 L (37.2-46.3) % MCH 26.5 L (27.0-32.0) pg MCHC 30.9 L (32.0-37.0) g/dL Immature Gran # 0.05 H (0.00-0.04) X 10*3/uL Lymphocytes # 0.60 L (0.90-5.00) X 10*3/uL Eosinophils # 0 L (0.04-0.35) X 10*3/uL Glucose 114 H (70-110) mg/dL
--- NOTE | 2024-02-04 19:37 | P.PN ---
Subjective Progress Note Date: 02/04/24 Patient is a 53-year-old female with known history of hypertension, hyperlipidemia, morbid obesity, anemia with history of hysterectomy and bilateral arthroscopic knee surgery. Patient was admitted to hospital for elective sleeve gastrectomy.. Patient is status post da Ronnell assisted laparoscopic sleeve gastrectomy with repair of hiatal hernia. Patient tolerated procedure well. Currently does have minimal nausea. Started on liquid diet. No complaints of chest pain or shortness breath. Pain is con trolled. No fever no chills. Blood pressure 126/83 pulse 70 respiration 15 and pulse ox 94% on room air. Laboratory data showed WBC 10.2 hemoglobin 12.6 and platelets 291 sodium 137 potassium 4.1 chloride 101 bicarb is 13 BUN 15 and creatinine 0.72 and magnesium 1.7. Patient is receiving Decadron 4 mg IV every 6 hourly. 02/04/2024 Patient is resting in the bed. Awake alert and oriented x 3. No complaints of chest pain or shortness of air. Nausea did improve. Patient is able to tolerate liquids. Advance to bariatric clear liquid diet. No fever no chills. 9 laboratory showed WBC improved to 8.0 hemoglobin 11.2 and platelets 244 sodium 139 potassium 3.9 chloride 104 bicarb is 23.1 BUN 15.3 and creatinine 0.8 and blood sugar is 114. Current medications reviewed. Objective - Vital Signs Vital signs: Vital Signs Temp 98 F 02/04/24 07:44 Pulse 52 L 02/04/24 07:44 Resp 18 02/04/24 07:44 BP 129/75 02/04/24 07:44 Pulse Ox 91 L 02/04/24 07:44 FiO2 21 02/03/24 07:57 Intake & Output 02/03/24 02/04/24 02/04/24 18:59 06:59 18:59 Weight 137.3 kg Other: Voiding Method Toilet # Voids 3 2 - Exam PHYSICAL EXAMINATION: Patient is lying in the bed comfortably, no acute distress, awake alert and oriented.. HEENT: Normocephalic. Neck is supple. Pupils reactive. Nostrils clear. Oral cavity is moist. Neck reveals no JVD, carotid bruits, or thyromegaly. CHEST EXAMINATION: Trachea is central. Symmetrical expansion. lung english clear to auscultation and percussion. CARDIAC: Normal S1, S2 with no gallops. No murmurs ABDOMEN: Soft. Bowel sounds normal. No organomegaly. No abdominal bruits. Extremities: reveal no edema. No clubbing or cyanosis Neurologically awake, alert, oriented x3 with well-coordinated movements. No focal deficits noted Skin: No rash or skin lesions. Psychiatric: Coperative. Nonsuicidal Musculoskeletal: No joint swelling or deformity. Normal range of motion. - Labs CBC & Chem 7: 02/04/24 02:20 02/04/24 02:20 Labs: Abnormal Lab Results - Last 24 Hours (Table) 02/03/24 02/04/24 02/04/24 Range/Units 07:22 02:20 02:20 WBC 10.26 H (4.50-10.00) X 10*3/uL Hgb 11.2 L (12.0-15.0) g/dL Hct 36.3 L (37.2-46.3) % MCH 26.3 L 26.5 L (27.0-32.0) pg MCHC 30.9 L 30.9 L (32.0-37.0) g/dL Immature Gran # 0.05 H (0.00-0.04) X 10*3/uL Neutrophils # 9.56 H (1.80-7.70) X 10*3/uL Lymphocytes # 0.53 L 0.60 L (0.90-5.00) X 10*3/uL Monocytes # 0.12 L (0.20-1.00) X 10*3/uL Eosinophils # 0 L 0 L (0.04-0.35) X 10*3/uL Glucose 114 H (70-110) mg/dL Assessment and Plan Assessment: Status post da Ronnell assisted laparoscopic sleeve gastrectomy with repair of hiatal hernia. Postoperative day 2 Mild leukocytosis likely postsurgical in remission. Normalized. Hypertension. Controlled. Morbid obesity BMI 50.4 GI and DVT prophylaxis as per primary team Plan: Patient will be continued on IV hydration. Symptomatic management for nausea. Pain management. Patient is currently tolerating clear liquid diet. Encourage incentive spirometry. Will hold hydrochlorothiazide until patient tolerates oral diet. Continue to mo nitor blood pressure closely. Restarted Lipitor. Will continue to follow and further recommendations based on clinical course. Thank you kindly for your consult.
[2024-02-05] MEDS: hydroCHLOROthiazide 12.5 MG CAP PO SCH (10:50)
--- NOTE | 2024-02-05 12:56 | P.PN ---
Subjective Progress Note Date: 02/05/24 Patient is a 53-year-old female with known history of hypertension, hyperlipidemia, morbid obesity, anemia with history of hysterectomy and bilateral arthroscopic knee surgery. Patient was admitted to hospital for elective sleeve gastrectomy.. Patient is status post da Ronnell assisted laparoscopic sleeve gastrectomy with repair of hiatal hernia. Patient tolerated procedure well. Currently does have minimal nausea. Started on liquid diet. No complaints of chest pain or shortness breath. Pain is c ontrolled. No fever no chills. Blood pressure 126/83 pulse 70 respiration 15 and pulse ox 94% on room air. Laboratory data showed WBC 10.2 hemoglobin 12.6 and platelets 291 sodium 137 potassium 4.1 chloride 101 bicarb is 13 BUN 15 and creatinine 0.72 and magnesium 1.7. Patient is receiving Decadron 4 mg IV every 6 hourly. 02/04/2024 Patient is resting in the bed. Awake alert and oriented x 3. No complaints of chest pain or shortness of air. Nausea did improve. Patient is able to tolerate liquids. Advance to bariatric clear liquid diet. No fever no chills. 9 laboratory showed WBC improved to 8.0 hemoglobin 11.2 and platelets 244 sodium 139 potassium 3.9 chloride 104 bicarb is 23.1 BUN 15.3 and creatinine 0.8 and blood sugar is 114. 02/05/2024 Patient is seen in follow-up today status post sleeve gastrectomy. Patient continues on clear liquids per general surgery and reports to tolerating although not eating much. Patient blood pressures are elevated and resuming HydroDIURIL although concerns for low heart rates. EKG performed showing marked sinus bradycardia. Patient reports she does feel some lightheadedness and dizziness when getting up. Cardiology consulted per general surgery for further evaluation. Patient is using incentive spirometer and denies any chest pain or shortness of breath. Patient reports has been up sitting at the side of the bed. Encouraged increase activity as tolerated along with sitting in the chair more frequently. When sitting up patient was instructed to sit at the edge of the chair or bed for a few minutes prior to getting up to alleviate some of the dizziness symptoms. Review of systems: Constitutional: No reports of fatigue, fever, or chills Cardiovascular: No reports of chest pain or palpitations Respiratory: No reports of shortness of breath or cough GI: No reports of nausea, vomiting, or diarrhea : No reports of dysuria or retention Neurovascular: reports of generalized weakness All medications have been reviewed Physical exam: Gen: This is a 53-year-old female who is awake, alert and oriented x 3, well-developed, morbidly obese HEENT: Head is atraumatic, normocephalic. Pupils equal, round. Sclerae is anic teric. NECK: Supple. No JVD. No lymphadenopathy. No thyromegaly. LUNGS: Diminished breath sounds bilaterally otherwise clear to auscultation. No wheezes or rhonchi. No intercostal retractions. HEART: Sinus bradycardia ABDOMEN: Soft. Obese, bowel sounds are present. No masses. No tenderness. EXTREMITIES: No pedal edema. No calf tenderness. Chronic lower extremity edema, nonpitting NEUROLOGICAL: Patient is awake, alert and oriented x3. Cranial nerves 2 through 12 are grossly intact. Assessment: Status post da Ronnell assisted laparoscopic sleeve gastrectomy with repair of hiatal hernia. Postoperative day 2 Mild leukocytosis likely postsurgical in remission. Normalized. Hypertension. Blood pressure medications being resumed Marked bradycardia on EKG, cardiology consulted and pending Morbid obesity BMI 50.4 GI and DVT prophylaxis as per primary team Full code Plan: Patient will be continued on gentle IV hydration. Symptomatic management for nausea. Pain management. Patient is currently tolerating clear liquid diet. Will resume hydrochlorothiazide as patient is tolerating diet clear liquids and blood pressures are mildly elevated. Heart rates into the 40s and low 50s and EKG was done showing marked sinus bradycardia. Cardiology was consulted per general surgery and pending at this time Continue using incentive spirometer at least 10 times every hour while awake Patient has been instructed to sit up more frequently in the chair and increase activity as tolerated with walking. Patient also instructed to sit at the side of the bed or chair for 2 to 3 minutes prior to getting up and walking to alleviate some dizziness symptoms Thank you kindly for this consultation we will continue to follow with general surgery during hospitalization Patient has been instructed to follow-up with her primary care provider on discharge The impression and plan of care has been dictated by Padmini Wolf, Nurse Practitioner as directed. Dr. Kindra MD I have performed a history and examination and MDM of this patient, discussed the same with the dictator, and agree with the dictator's assessment and plan as written ,documented as a scribe. Based on total visit time, I have performed more than 50% of the visit. Objective - Vital Signs Vital signs: Vital Signs Temp 97.8 F 02/05/24 07:34 Pulse 44 L 02/05/24 07:34 Resp 17 02/05/24 07:34 BP 141/95 02/05/24 07:34 Pulse Ox 98 02/05/24 07:34 FiO2 21 02/03/24 07:57 Intake & Output 02/04/24 02/05/24 02/05/24 18:59 06:59 18:59 Other: Voiding Method Toilet Toilet # Voids 2 1 - Labs CBC & Chem 7: 02/04/24 02:20 02/04/24 02:20
[2024-02-05] MEDS: hydrALAZINE HCL 20 MG/ML 1 ML VIAL IVP STA (13:08)
[2024-02-05] MEDS ORDERED: HYDROcodone/APAP 15 ML SOLUTION PO PRN (14:09)
[2024-02-05] MEDS ORDERED: HYDROmorphone 0.5 MG/0.5 ML SYRINGE IVP PRN (14:10)
--- NOTE | 2024-02-05 14:17 | P.PN ---
Subjective Progress Note Date: 02/05/24 SURGICAL PROGRESS NOTE CHIEF COMPLAINT: Morbid obesity HISTORY OF PRESENT ILLNESS: Postop day #3 status post laparoscopic sleeve gastrectomy with repair of hiatal hernia. Patient had complained of some reflux this morning. She did report her pain was improving. However, she has still been using the Dilaudid for pain medication. She did have some dizziness per nursing staff earlier this morning. Her heart rate has been in the 40s. EKG had shown sinus bradycardia heart rate 41. Blood pressure has been elevated. Medicine service has resumed hydrochlorothiazide. Patient seen and examined with Dr. Conteh who is covering for Dr. Swan PHYSICAL EXAM: VITAL SIGNS: Reviewed. GENERAL: Well-developed in no acute distress. ABDOMEN: Soft. Nondistended. Incision sites clean dry and intact NEUROLOGIC: Alert and oriented. Cranial nerves II through XII grossly intact. ASSESSMENT: 1. Morbid obesity, hypertension and hiatal hernia PLAN: -Cardiology consulted for bradycardia -Discontinued IV Dilaudid. It may be contributing to patient's bradycardia -[place] elixir added for pain management -Continue bariatric clear liquid diet -Continue IV fluids -Encourage patient to ambulate -Encourage patient to use incentive spirometer -Anticipate discharge possibly tomorrow if cleared by cardiology service -DVT prophylaxis Lovenox and GI prophylaxis Protonix Physician Ap Operator note has been reviewed by physician. Signing provider agrees with the documented findings, assessment, and plan of care. Objective - Vital Signs Vital signs: Vital Signs Temp 97.4 F L 02/05/24 13:29 Pulse 53 L 02/05/24 13:29 Resp 18 02/05/24 13:29 BP 125/83 02/05/24 13:29 Pulse Ox 95 02/05/24 13:29 FiO2 21 02/03/24 07:57 Intake & Output 02/04/24 02/05/24 02/05/24 18:59 06:59 18:59 Other: Voiding Method Toilet Toilet # Voids 2 1 - Labs CBC & Chem 7: 02/04/24 02:20 02/04/24 02:20
--- NOTE | 2024-02-05 14:23 | P.CRDCN ---
History of Present Illness History of present illness: HISTORY OF PRESENT ILLNESS: This is a 53-year-old female with a past medical history significant for hypertension, hyperlipidemia, and morbid obesity. 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 We have been asked to see the patient in consultation for bradycardia. Patient examined this afternoon. She is sitting up in the chair. She is status post laparoscopic sleeve gastrectomy with repair of hiatal hernia. Postop day #2. Patient states she is tolerating liquids. Denies any nausea or vomiting. Patient does report having some dizziness upon standing. She denies any chest pain or shortness of breath. Patient's blood pressures have been elevated today with a recent reading of 161/107. Patient states her blood pressures are usually well-controlled. Additionally, patient was noted to be bradycardic with a heart rate in the 40s. EKG reveals sinus bradycardia with no signs of acute ischemia. Patient denies having any known history of bradycardia. Patient has been receiving IV fluids at 100 cc an hour. She does report that she feels like she is starting to get swollen. Patient does report she was at [facility] in April of this year for chest pain. She underwent an echocardiogram revealing ejection fraction 55% with no significant valvular abnormalities noted. She also underwent stress testing which was negative for ischemia. DIAGNOSTICS: - EKG reveals sinus bradycardia with no signs of acute ischemia - Laboratory data: WBC 8.07. Hemoglobin 11.2. Platelet count 244. Sodium 139. Potassium 3.9. BUN 15. Creatinine 0.8. - Current home cardiac medications include Lipitor 20 mg at night, hydrochlorothiazide 12.5 mg at night REVIEW OF SYSTEMS: At the time of my exam: CONSTITUTIONAL: Denies fever or chills. HEENT: Denies blurred vision, vision changes, or eye pain. Denies hemoptysis CARDIOVASCULAR: Denies chest pain. Denies orthopnea. Denies PND. Denies palpitations RESPIRATORY: Denies shortness of breath. GASTROINTESTINAL: Denies abdominal pain. Denies nausea or vomiting. HEMATOLOGIC: Denies bleeding disorders. GENITOURINARY: Denies any blood in urine. SKIN: Denies pruitis. Denies rash. PHYSICAL EXAM: VITAL SIGNS: Reviewed. GENERAL: Well-developed in no acute distress. HEENT: Head is normocephalic. Pupils are equal, round. Sclerae anicteric. Mucous membranes of the mouth are moist. Neck supple. No JVD or thyromegaly LUNGS: Respirations even and unlabored. Lungs essentially clear to auscultation bilaterally. HEART: Bradycardic. Regular rate and rhythm. S1 and S2 heard. ABDOMEN: Soft. Nondistended. Nontender. EXTREMITIES: Normal range of motion. No clubbing or cyanosis. Peripheral pulses intact. Bilateral lower extremity edema NEUROLOGIC: Awake and alert. Oriented x 3. ASSESSMENT: Morbid obesity, status post laparoscopic sleeve gastrectomy with repair of hiatal hernia Sinus bradycardia Dizziness Hypertension Hyperlipidemia PLAN: No need to repeat echocardiogram as this was performed earlier this year at [facility] Obtain orthostatic blood pressures Check TSH Begin telemetry monitoring Decrease IV fluids to 40 cc an hour. Encourage oral intake. Give hydralazine 10 mg IV push x 1 dose. Continue to monitor blood pressures Further recommendations pending patient course Nurse practitioner note has been reviewed by physician. Signing provider agrees with the documented findings, assessment, and plan of care documented by PLANNING AIDE as a scribe. Past Medical History Past Medical History: Hyperlipidemia, Hypertension Additional Past Medical History / Comment(s): ANEMIA PRIOR AND POST HYSTERECTOMY, NO CURRENT ISSUES. History of Any Multi-Drug Resistant Organisms: None Reported Past Surgical History: Hysterectomy, Orthopedic Surgery Additional Past Surgical History / Comment(s): Bilateral arthroscopic knee surgery. Past Anesthesia/Blood Transfusion Reactions: No Reported Reaction Additional Past Anesthesia/Blood Transfusion Reaction / Comment(s): Has had blood transfusion, no reactions. Past Psychological History: No Psychological Hx Reported Smoking Status: Never smoker Past Alcohol Use History: None Reported Past Drug Use History: None Reported - Past Family History Father Family Medical History: Hypertension Medications and Allergies Home Medications Medication Instructions Recorded Confirmed Type Atorvastatin [Lipitor] 20 mg PO HS 07/23/23 02/02/24 History Ibuprofen [Advil] 200 - 400 mg PO Q6H PRN 08/22/23 01/26/24 History hydroCHLOROthiazide 12.5 mg PO HS 01/26/24 02/02/24 History Allergies Allergy/AdvReac Type Severity Reaction Status Date / Time shellfish derived [Shellfish] Allergy Swelling Verified 02/02/24 13:30 Physical Exam Vitals: Vital Signs Temp Pulse Resp BP Pulse Ox 02/05/24 10:06 47 L 143/91 02/05/24 07:34 97.8 F 44 L 17 141/95 98 02/05/24 01:44 97.9 F 54 L 17 153/97 97 02/04/24 19:06 98.0 F 50 L 16 157/92 94 L 02/04/24 13:46 97.9 F 73 18 130/81 98 Intake and Output 02/04/24 02/05/24 02/05/24 22:59 06:59 14:59 Other: Voiding Method Toilet # Voids 2 1 Results 02/04/24 02:20 02/04/24 02:20 Current Medications Generic Name Dose Route Start Last Admin Trade Name Freq PRN Reason Stop Dose Admin Albuterol Sulfate 2.5 mg 02/02/24 20:00 02/05/24 12:13 Albuterol Nebulized 2.5 Mg/3 Ml INHALATION Not Given RT-QID SHEN Atorvastatin Calcium 20 mg 02/03/24 21:00 02/04/24 20:54 Atorvastatin 20 Mg Tab PO 20 mg HS SHEN Administration Bisacodyl 5 mg 02/04/24 08:00 Bisacodyl 5 Mg Tablet.Dr PO ONCE PRN Constipation Dexamethasone Sodium Phosphate 4 mg 02/03/24 00:00 02/05/24 11:54 Dexamethasone Sod Phosphate 4 Mg/Ml 1 Ml Vial IVP 4 mg Q6HR SHEN Administration Diphenhydramine HCl 25 mg 02/02/24 16:35 Diphenhydramine 50 Mg/Ml 1 Ml Vial IVP Q6HR PRN Itching Enoxaparin Sodium 40 mg 02/03/24 06:00 02/05/24 06:30 Enoxaparin 40 Mg/0.4 Ml Syringe SQ 40 mg Q12H SHEN Administration Hydrochlorothiazide 12.5 mg 02/05/24 10:10 02/05/24 10:50 Hydrochlorothiazide 12.5 Mg Cap PO 12.5 mg HS SHEN Administration Hydromorphone HCl 0.5 mg 02/02/24 16:35 02/04/24 09:35 Hydromorphone 0.5 Mg/0.5 Ml Syringe IVP 0.5 mg Q3HR PRN Administration Moderate Pain (4 to 6) Hydromorphone HCl 1 mg 02/02/24 16:35 02/05/24 07:58 Hydromorphone 1 Mg/Ml 1 Ml Syringe IVP 1 mg Q3HR PRN Administration Severe Pain (7 to 10) Hyoscyamine 0.125 mg 02/02/24 16:35 02/05/24 07:59 Hyoscyamine Oral Drops 1.875 Mg/15 Ml Bottle PO 0.125 mg Q6HR PRN Administration Esophageal Spasm Potassium Chloride/Sodium Chloride 1,000 mls @ 100 mls/hr 02/03/24 08:00 02/05/24 07:58 Ns-Kcl 20 Meq/L Iv Solution IV 100 mls/hr .Q10H SHEN Administration Acetaminophen 1,000 mg/ IV 100 mls @ 400 mls/hr 02/02/24 18:00 02/05/24 11:54 Solution IVPB 400 mls/hr Q6HR SHEN Administration Ketorolac Tromethamine 15 mg 02/03/24 10:00 02/05/24 10:07 Ketorolac 15 Mg/Ml 1 Ml Vial IVP 02/08/24 09:59 15 mg Q6H SHEN Administration Naloxone HCl 0.2 mg 02/02/24 16:35 Naloxone 0.4 Mg/Ml 1 Ml Vial IV Q2M PRN Opioid Reversal Ondansetron HCl 4 mg 02/02/24 16:35 02/05/24 06:30 Ondansetron 4 Mg/2 Ml Vial IVP 4 mg Q6HR PRN Administration Nausea And Vomiting Pantoprazole Sodium 40 mg 02/03/24 09:00 02/05/24 07:24 Pantoprazole 40 Mg/10 Ml Vial IV 40 mg DAILY SHEN Administration Scopolamine 1 patch 02/03/24 10:00 02/03/24 10:33 Scopolamine 1 Mg/72 Hr Patch TRANSDERM 1 patch Q72H SHEN Administration Simethicone 40 mg 02/03/24 09:45 02/05/24 11:55 Simethicone 40 Mg/0.6 Ml Drops 2,000 Mg/30 Ml Bottle PO 40 mg Q6HR SHEN Administration Intake and Output 02/04/24 02/05/24 02/05/24 22:59 06:59 14:59 Other: Voiding Method Toilet # Voids 2 1 02/04/24 02:20 02/04/24 02:20
[2024-02-05] MEDS: hydrALAZINE HCL 20 MG/ML 1 ML VIAL IVP PRN (17:13)
[2024-02-06 02:01] VITALS: RESP 18
[2024-02-06 07:45] VITALS: BP 152/88; PULSE 64; TEMP 97.5
--- NOTE | 2024-02-06 11:11 | P.DS ---
Providers Date of admission: 02/02/24 13:07 Expected date of discharge: 02/06/24 Attending physician: Justin Swan Consults: 02/02/24 16:35 Consult Physician Routine Consulting Provider: Ivone Rosado Consult Reason/Comments: med mgmt Do you want consulting provider notified?: Yes 02/05/24 12:16 Consult Physician Routine Consulting Provider: Yosvany Murillo Consult Reason/Comments: low heart rate Do you want consulting provider notified?: Yes Primary care physician: HALI Peterson Hospital Course: Discharge diagnosis 1. Morbid obesity, hypertension and hiatal hernia 2. Sinus bradycardia now improved. Hospital course This is a 53-year-old female with history of morbid obesity and a hiatal hernia. She is status post laparoscopic sleeve gastrectomy with repair of hiatal hernia. Patient's pain is controlled. She is tolerating diet. She has been up and ambulating. Her upper GI showed no evidence of leak or obstruction. She is afebrile. She is having flatus. Denies any difficulty urinating. Patient seen evaluated by cardiology in regards to sinus bradycardia. Patient's bradycardia has improved. Cardiology cleared her for discharge. Please refer to chart for any further details. Physician Porter Head note has been reviewed by physician. Signing provider agrees with the documented findings, assessment, and plan of care. Patient Condition at Discharge: Stable Plan - Discharge Summary Discharge Rx Participant: Yes New Discharge Prescriptions: New Ondansetron Odt [Zofran Odt] 4 mg PO Q8HR PRN #9 tab PRN Reason: Nausea bisacodyL [Dulcolax] 5 mg PO DAILY PRN #10 tab PRN Reason: Constipation Simethicone 40 mg/0.6 ml Drops [Mylicon Drops] 40 mg PO PCHS PRN #30 ml PRN Reason: Gas HYDROcodone/APAP 5-325MG [[place] 5-325] 1 tab PO Q6HR PRN 2 Days #5 tab PRN Reason: Pain Omeprazole [PriLOSEC] 40 mg PO DAILY #90 cap Continue Atorvastatin [Lipitor] 20 mg PO HS hydroCHLOROthiazide 12.5 mg PO HS Discontinued Ibuprofen [Advil] 200 - 400 mg PO Q6H PRN PRN Reason: Pain Discharge Medication List Atorvastatin [Lipitor] 20 mg PO HS 07/23/23 [History] hydroCHLOROthiazide 12.5 mg PO HS 11/25/24 [History] HYDROcodone/APAP 5-325MG [[place] 5-325] 1 tab PO Q6HR PRN 2 Days #5 tab 02/06/24 [Rx] Omeprazole [PriLOSEC] 40 mg PO DAILY #90 cap 02/06/24 [Rx] Ondansetron Odt [Zofran Odt] 4 mg PO Q8HR PRN #9 tab 02/06/24 [Rx] Simethicone 40 mg/0.6 ml Drops [Mylicon Drops] 40 mg PO PCHS PRN #30 ml 02/06/24 [Rx] bisacodyL [Dulcolax] 5 mg PO DAILY PRN #10 tab 02/06/24 [Rx] [facility]ment[facility] [place] [facility] 1 Week Activity/Diet/Wound Care/Special Instructions: No driving while taking [place] No lifting over 10 pounds You may shower. No soaking or tub baths for 2 weeks Very light activity until you are reevaluated at your follow up appointment with your surgeon Discharge Disposition: HOME SELF-CARE
--- NOTE | 2024-02-06 12:02 | P.PN ---
Subjective HISTORY OF PRESENT ILLNESS: This is a 53-year-old female with a past medical history significant for hypertension, hyperlipidemia, and morbid obesity. 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 We have been asked to see the patient in consultation for bradycardia. Patient examined this afternoon. She is sitting up in the chair. She is status post laparoscopic sleeve gastrectomy with repair of hiatal hernia. Postop day #2. Patient states she is tolerating liquids. Denies any nausea or vomiting. Patient does report having some dizziness upon standing. She denies any chest pain or shortness of breath. Patient's blood pressures have been elevated today with a recent reading of 161/107. Patient states her blood pressures are usually well-controlled. Additionally, patient was noted to be bradycardic with a heart rate in the 40s. EKG reveals sinus bradycardia with no signs of acute ischemia. Patient denies having any known history of bradycardia. Patient has been receiving IV fluids at 100 cc an hour. She does report that she feels like she is starting to get swollen. Patient does report she was at [facility] in April of this year for chest pain. She underwent an echocardiogram revealing ejection fraction 55% with no significant valvular abnormalities noted. She also underwent stress testing wh ich was negative for ischemia. DIAGNOSTICS: - EKG reveals sinus bradycardia with no signs of acute ischemia - Laboratory data: WBC 8.07. Hemoglobin 11.2. Platelet count 244. Sodium 139. Potassium 3.9. BUN 15. Creatinine 0.8. - Current home cardiac medications include Lipitor 20 mg at night, h ydrochlorothiazide 12.5 mg at night 02/06/2024 Patient examined this morning at the bedside. Patient currently denies chest pain or pressure. She denies shortness of breath. Denies dizziness or lig htheadedness. Orthostatic blood pressures obtained and unremarkable. Patient's blood pressures remain elevated with a systolic in the 150s this morning. PHYSICAL EXAM: VITAL SIGNS: Reviewed. GENERAL: Well-developed in no acute distress. HEENT: Head is normocephalic. Pupils are equal, round. Sclerae anicteric. Mucous membranes of the mouth are moist. Neck supple. No JVD or thyromegaly LUNGS: Respirations even and unlabored. Lungs essentially clear to auscultation bilaterally. HEART: Bradycardic. Regular rate and rhythm. S1 and S2 heard. ABDOMEN: Soft. Nondistended. Nontender. EXTREMITIES: Normal range of motion. No clubbing or cyanosis. Peripheral pulses intact. Bilateral lower extremity edema NEUROLOGIC: Awake and alert. Oriented x 3. ASSESSMENT: Morbid obesity, status post laparoscopic sleeve gastrectomy with repair of hiatal hernia Sinus bradycardia Dizziness Hypertension Hyperlipidemia PLAN: Patient remains bradycardic with a heart rate in the 40s. However she is asy mptomatic. Patient was instructed to return back to the hospital if she became dizzy or lightheaded or was feeling like she was going to pass out. Patient verbalized understanding. Patient is stable for discharge home today from a cardiac standpoint We will sign off. Please reconsult if needed. Nurse practitioner note has been reviewed by physician. Signing provider agrees with the documented findings, assessment, and plan of care documented by MAINTENANCE AIDE as a scribe. Objective - Vital Signs Vital signs: Vital Signs Temp 97.5 F L 02/06/24 07:44 Pulse 64 02/06/24 07:44 Resp 18 02/06/24 07:44 BP 152/88 02/06/24 07:44 Pulse Ox 97 02/06/24 07:44 FiO2 21 02/03/24 07:57 Intake & Output 02/05/24 02/06/24 02/06/24 18:59 06:59 18:59 Other: Voiding Method Toilet # Voids 2 1 # Bowel Movements 1 - Labs CBC & Chem 7: 02/04/24 02:20 02/04/24 02:20
--- NOTE | 2024-02-09 05:47 | P.PN ---
Subjective Progress Note Date: 02/06/24 Patient is a 53-year-old female with known history of hypertension, hyperlipidemia, morbid obesity, anemia with history of hysterectomy and bilateral arthroscopic knee surgery. Patient was admitted to hospital for elective sleeve gastrectomy.. Patient is status post da Ronnell assisted laparoscopic sleeve gastrectomy with repair of hiatal hernia. Patient tolerated procedure well. Currently does have minimal nausea. Started on liquid diet. No complaints of chest pain or shortness breath. Pain is c ontrolled. No fever no chills. Blood pressure 126/83 pulse 70 respiration 15 and pulse ox 94% on room air. Laboratory data showed WBC 10.2 hemoglobin 12.6 and platelets 291 sodium 137 potassium 4.1 chloride 101 bicarb is 13 BUN 15 and creatinine 0.72 and magnesium 1.7. Patient is receiving Decadron 4 mg IV every 6 hourly. 02/04/2024 Patient is resting in the bed. Awake alert and oriented x 3. No complaints of chest pain or shortness of air. Nausea did improve. Patient is able to tolerate liquids. Advance to bariatric clear liquid diet. No fever no chills. 9 laboratory showed WBC improved to 8.0 hemoglobin 11.2 and platelets 244 sodium 139 potassium 3.9 chloride 104 bicarb is 23.1 BUN 15.3 and creatinine 0.8 and blood sugar is 114. 02/05/2024 Patient is seen in follow-up today status post sleeve gastrectomy. Patient continues on clear liquids per general surgery and reports to tolerating although not eating much. Patient blood pressures are elevated and resuming HydroDIURIL although concerns for low heart rates. EKG performed showing marked sinus bradycardia. Patient reports she does feel some lightheadedness and dizziness when getting up. Cardiology consulted per general surgery for further evaluation. Patient is using incentive spirometer and denies any chest pain or shortness of breath. Patient reports has been up sitting at the side of the bed. Encouraged increase activity as tolerated along with sitting in the chair more frequently. When sitting up patient was instructed to sit at the edge of the chair or bed for a few minutes prior to getting up to alleviate some of the dizziness symptoms. 02/06/2024 Patient is seen in follow-up today with no acute overnight issues. Patient evaluated by cardiology as patient was having noted bradycardia. Patient did have a recent workup done this year which was negative including echo which was within normal limits and evaluated by cardiology recommending no additional changes at this time with outpatient follow-up. Patient reports she is feeling much improved denies any further dizziness has been up and walking with no lightheadedness or symptoms noted. Patient reports she will likely be going home once cleared by her surgeon. Patient is afebrile with no reports of chest pain or shortness of breath. Patient has been instructed to continue using incentive spirometer. Review of systems: Constitutional: No reports of fatigue, fever, or chills Cardiovascular: No reports of chest pain or palpitations Respiratory: No reports of shortness of breath or cough GI: No reports of nausea, vomiting, or diarrhea : No reports of dysuria or retention Neurovascular: reports of generalized weakness All medications have been reviewed Physical exam: Gen: This is a 53-year-old female who is awake, alert and oriented x 3, well- developed, morbidly obese HEENT: Head is atraumatic, normocephalic. Pupils equal, round. Sclerae is anicteric. NECK: Supple. No JVD. No lymphadenopathy. No thyromegaly. LUNGS: Diminished breath sounds bilaterally otherwise clear to auscultation. No wheezes or rhonchi. No intercostal retractions. HEART: Sinus bradycardia ABDOMEN: Soft. Obese, bowel sounds are present. No masses. No tenderness. EXTREMITIES: No pedal edema. No calf tenderness. Chronic lower extremity edema, nonpitting NEUROLOGICAL: Patient is awake, alert and oriented x3. Cranial nerves 2 through 12 are grossly intact. Assessment: Status post da Ronnell assisted laparoscopic sleeve gastrectomy with repair of hiatal hernia. Mild leukocytosis likely postsurgical in remission. Normalized. Hypertension Marked bradycardia on EKG, recent stress testing and echo done this year within normal limits per cardiology Morbid obesity BMI 50.4 GI and DVT prophylaxis as per primary team Full code Plan: Patient currently maintained on clear liquids per general surgery and tolerating with no reported nausea or vomiting hydrochlorothiazide has been resumed as patient is tolerating diet clear liquids and blood pressures are mildly elevated. Heart rates into the 40s and low 50s and EKG was done showing marked sinus bradycardia. Cardiology was consulted per general surgery and has had recent cardiac workup including stress test which was negative and recommend outpatient follow-up with no further interventions at this time. Continue using incentive spirometer at least 10 times every hour while awake Patient has been instructed to sit up more frequently in the chair and increase activity as tolerated with walking. Patient also instructed to sit at the side of the bed or chair for 2 to 3 minutes prior to getting up and walking to alleviate some dizziness symptoms Thank you kindly for this consultation we will continue to follow with general surgery during hospitalization Patient has been instructed to follow-up with her primary care provider on discharge. Patient is medically stable once cleared by general surgery The impression and plan of care has been dictated by Padmini Wolf, Nurse Practitioner as directed. Dr. Shahbaz MD I have performed a history and examination and MDM of this patient, discussed the same with the dictator, and agree with the dictator's assessment and plan as written ,documented as a scribe. Based on total visit time, I have performed more than 50% of the visit. Objective - Vital Signs Vital signs: Vital Signs Temp 97.5 F L 02/06/24 07:44 Pulse 64 02/06/24 07:44 Resp 18 02/06/24 07:44 BP 152/88 02/06/24 07:44 Pulse Ox 97 02/06/24 07:44 FiO2 21 02/03/24 07:57 Intake & Output 02/05/24 02/06/24 02/06/24 18:59 06:59 18:59 Other: Voiding Method Toilet # Voids 2 1 # Bowel Movements 1 - Labs CBC & Chem 7: 02/04/24 02:20 02/04/24 02:20
== END 2024-02-06 14:15 | disposition home or self-care (01) | DRG 327 ==
LOC: 2ORMAIN 13:07 → 4SSUR 17:05
PROVIDERS: ADMIT Surgery; ATTEND Surgery
PROC: 0BQT4ZZ Repair Diaphragm, Percutaneous Endoscopic Approach (ICD-10-PCS; 2024-02-02)
PROC: 8E0W4CZ Robotic Assisted Procedure of Trunk Region, Percutaneous Endoscopic Approach (ICD-10-PCS; 2024-02-02)
PROC: 0DB64Z3 Excision of Stomach, Percutaneous Endoscopic Approach, Vertical (ICD-10-PCS; principal; 2024-02-02 14:35)
DX: K44.9 Diaphragmatic hernia without obstruction or gangrene (principal); Z68.43 Body mass index [BMI] 50.0-59.9, adult; E66.01 Morbid (severe) obesity due to excess calories; I10 Essential (primary) hypertension; E78.00 Pure hypercholesterolemia, unspecified; M25.50 Pain in unspecified joint; D72.828 Other elevated white blood cell count; K21.9 Gastro-esophageal reflux disease without esophagitis; R00.1 Bradycardia, unspecified; Z79.899 Other long term (current) drug therapy
CPT/HCPCS: 74240; 80048; 80051; 82310; 82565; 83735; 84100; 84443; 84520; 85025; 88307; 88342; 94760

== ENCOUNTER → 2024-02-10 | Outpatient (CLI) | payer MEDICARE ==
[2024-02-10 14:35] VITALS: PULSE 85; RESP 16; TEMP 97.8; BMI 50.5
--- NOTE | 2024-02-10 14:58 | P.BASOAP ---
Subjective Progress Note Date: 02/10/24 Principal diagnosis: Postop sleeve Patient returns for recheck. Underwent sleeve gastrectomy last Friday. She was discharged on Friday. Patient apparently had some bradycardia issues that was being evaluated. This is likely related to her concurrent hiatal hernia repair. Doing well up now. No pain. Tolerating liquids. Unfortunately she is not recording the intake well. She thinks she has been drinking about 30 to 40 ounces of liquids daily. 45 g of protein daily. Taking her antiacids. Objective - Vital Signs Vital signs: Vital Signs Temp 97.8 F 02/10/24 14:30 Pulse 85 02/10/24 14:30 Resp 16 02/10/24 14:30 BP Pulse Ox FiO2 Intake & Output 02/09/24 02/10/24 02/10/24 18:59 06:59 18:59 Weight 137.892 kg - Exam Abdomen: Soft, nondistended, incisions clean and dry, minimal tenderness at extraction site Assessment/Plan (1) Morbid obesity with BMI of 50.0-59.9, adult Narrative/Plan: Patient doing well after sleeve gastrectomy last week. Patient's blood pressure slightly elevated today. Recommend follow-up with PCP in the next week. Continue antiacid therapy. Continue slow advancement of diet. Dietitian to see the patient today. Discussed with patient the importance of recording daily protein and liquid intake. Follow-up next Friday for recheck. Plan: Date: 02/10/24 Initial Weight: 145.15 kg Initial BMI: 53.2 Current Weight: 137.892 kg Current BMI: 50.5 Type of Surgery: Vertical Sleeve Gastrectomy Total Volume in Band: Previous Volume: Volume Removed: Volume Added: Band Size:
== END ==
LOC: BARWHC3 14:12
PROVIDERS: ATTEND Surgery
DX: E66.01 Morbid (severe) obesity due to excess calories (principal); Z68.43 Body mass index [BMI] 50.0-59.9, adult; Z71.3 Dietary counseling and surveillance; Z91.013 Allergy to seafood
CPT/HCPCS: 97802; G0463; 99211

== ENCOUNTER → 2024-02-17 | Outpatient (CLI) | payer MEDICARE ==
[2024-02-17 10:47] VITALS: BP 147/99; PULSE 100; RESP 16; TEMP 97.8
[2024-02-17] MEDS: SODIUM CHLORIDE 0.9% 1,000 ML IV ONE (10:53)
[2024-02-17 11:01] LABS: Basophils % (A) 0 %; Eosinophils # (A) 0.2 k/uL (0-0.7); Eosinophils % (A) 3 %; HCT 38.6 % (34.0-46.0); HGB 12.4 gm/dL (11.4-16.0); Lymphocytes # (A) 1.4 k/uL (1.0-4.8); Lymphocytes % (A) 27 %; MCH 27.1 pg (25.0-35.0); MCHC 32.2 g/dL (31.0-37.0); MCV 84.1 fL (80.0-100.0); Mean Platelet Volume 7.4; Monocytes # (A) 0.2 k/uL (0-1.0); Monocytes % (A) 4 %; Neutrophils # (A) 3.3 k/uL (1.3-7.7); Neutrophils % (A) 64 %; Platelet Count 248 k/uL (150-450); RBC 4.59 m/uL (3.80-5.40); RDW 14.8 % (11.5-15.5); WBC 5.2 k/uL (3.8-10.6)
[2024-02-17 11:21] LABS: ALT 35 U/L (4-34); African American GFR (CKD) >90 (>60 ml/min/1.73 sqM); Anion Gap 8 mmol/L; Blood Urea Nitrogen 20 mg/dL (7-17); Calcium 9.3 mg/dL (8.4-10.2); Carbon Dioxide 32 mmol/L (22-30); Chloride 99 mmol/L (98-107); Glucose 104 mg/dL (74-99); Non-African American GFR(CKD) >90 (>60 ml/min/1.73 sqM); Sodium 139 mmol/L (137-145); Total Bilirubin 0.7 mg/dL (0.2-1.3)
[2024-02-17 11:28] LABS: AST 31 U/L (14-36); Alkaline Phosphatase 55 U/L (38-126); Potassium 3.9 mmol/L (3.5-5.1); Total Protein 7.3 g/dL (6.3-8.2)
== END ==
LOC: PROCWHC3 10:40
PROVIDERS: ATTEND Surgery
DX: E86.0 Dehydration (principal)
CPT/HCPCS: 80053; 85025; 96360

== ENCOUNTER → 2024-02-17 | Outpatient (CLI) | payer MEDICARE ==
--- NOTE | 2024-02-17 13:20 | CT ---
EXAMINATION TYPE: CT abdomen pelvis w con CT DLP: 2057 mGycm, Automated exposure control for dose reduction was used. DATE OF EXAM: 02/17/2024 1:08 PM COMPARISON: Fluoroscopic upper GI 02/03/2024 CLINICAL INDICATION:Female, 53 years old with history of R10.12 LUQ pain; LUQ pain, bariatric prep TECHNIQUE: Standard CT of the abdomen and pelvis following the administration of 100 cc of Isovue 3 00 IV contrast material and oral contrast. Coronal and sagittal reformats were performed. FINDINGS: LOWER CHEST: Unremarkable ABDOMEN LIVER: Left hepatic lobe 1.6 cm cyst. GALLBLADDER AND BILE DUCTS: Couple of gas filled gallstones identified. No biliary duct dilatation. PANCREAS: Unremarkable. SPLEEN: Unremarkable. ADRENAL GLANDS: Unremarkable. KIDNEYS AND URETERS: No evidence of hydronephrosis or renal calculus. The kidneys enhance symmetrical ly. Contrast is demonstrated within both collecting systems on the delayed phase. Left inferior pole 3.2 cm cyst. PELVIS BLADDER: Incompletely distended but grossly unremarkable. REPRODUCTIVE: The uterus is surgically absent. ABDOMEN & PELVIS STOMACH AND BOWEL: Postsurgical changes from gastric sleeve. Small hiatal hernia.Enteric contrast marcella ches the mid small bowel. No extravasation of enteric contrast. No focal bowel wall thickening or amilcar rounding inflammatory changes. Distal colonic diverticulosis without evidence for acute diverticuliti s. No evidence of bowel obstruction. PERITONEUM: No free fluid or organized fluid collection. Trace amount of gas along the anterior abdom inal epigastric region in the region of the peritoneum. VASCULATURE: No evidence of aortic aneurysm. MUSCULOSKELETAL: No acute osseous abnormalities. Osteoarthritic changes of both hips with right great er than left. LYMPH NODES: No evidence for lymphadenopathy. SOFT TISSUE/ABDOMINAL WALL: Small fat filled umbilical hernia. Stranding changes within the anterior abdominal wall epigastric region related to recent surgery. IMPRESSION: 1. Postsurgical changes from gastric sleeve without evidence for extravasation of contrast to sugges t leak. Small hiatal hernia. 2. Trace pneumoperitoneum which is likely related to prior surgery. 3. Cholelithiasis. 4. Colonic diverticulosis without evidence for acute diverticulitis. Findings discussed with Dr. Justin Swan at time of exam. [facility], , 02/17/2024 1:17 PM
== END | disposition home or self-care (01) ==
LOC: RADCTMAIN 12:16
PROVIDERS: ATTEND Surgery
DX: K80.20 Calculus of gallbladder without cholecystitis without obstruction (principal); K57.30 Diverticulosis of large intestine without perforation or abscess without bleeding; K66.0 Peritoneal adhesions (postprocedural) (postinfection); Z98.890 Other specified postprocedural states
CPT/HCPCS: 74177; Q9967

== ENCOUNTER → 2024-02-17 | Outpatient (CLI) | payer MEDICARE ==
--- NOTE | 2024-02-17 10:41 | P.BASOAP ---
Subjective Progress Note Date: 02/17/24 Principal diagnosis: Abdominal pain 53-year-old female underwent sleeve gastrectomy 2 weeks ago. Yesterday she called complaining of some increased abdominal pain left upper quadrant with movement. Came in today for evaluation. Rates the pain at a 6 out of 10. No significant pain unless she is moving. Tolerating liquids. Still has some mild discomfort when drinking too much. Says this is unchanged since initial postop. No fevers. No lightheadedness. Patient presented with a heart rate of 125. Systolic blood pressure in the 140s. She is afebrile. Repeat heart rate 99. Patient had hiatal hernia repair at the time of her sleeve gastrectomy. Objective - Exam Abdomen: Soft, nondistended, incisions clean and dry, mild left upper quadrant tenderness, no rebound or guarding, no epigastric or right upper quadrant tenderness Assessment/Plan (1) Abdominal pain Narrative/Plan: 53-year-old female with abdominal pain after recent sleeve gastrectomy. Will c heck CBC and CMP. Start IV and give 1 L bolus of saline. Will check CT abdomen pelvis with IV and limited oral contrast. Plan: Date: Initial Weight: 145.15 kg Initial BMI: Current Weight: Current BMI: Type of Surgery: Total Volume in Band: Previous Volume: Volume Removed: Volume Added: Band Size:
[2024-02-17 11:32] VITALS: BP 134/85; PULSE 99; TEMP 98.2; BMI 48.6
== END ==
LOC: BARWHC3 10:13
PROVIDERS: ATTEND Surgery
DX: E66.01 Morbid (severe) obesity due to excess calories (principal); Z68.42 Body mass index [BMI] 45.0-49.9, adult; R10.9 Unspecified abdominal pain; Z91.013 Allergy to seafood
CPT/HCPCS: 99211

== ENCOUNTER → 2024-03-30 | Outpatient (CLI) | payer MEDICARE ==
[2024-03-30 19:27] LABS: HCT 41.9 % (37.2-46.3); HGB 13.4 g/dL (12.0-15.0); MCH 26.1 pg (27.0-32.0); MCV 81.7 FL (80.0-97.0); Mean Platelet Volume 10.8 FL (9.5-12.2); NRBC Per 100 WBC 0 X 10*3/uL (0.00-0.01); Platelet Count 294 X 10*3/uL (140-440); RBC 5.13 X 10*6/uL (4.10-5.20); RDW 15.3 % (11.5-14.5); WBC 5.79 X 10*3/uL (4.50-10.00)
[2024-03-30 20:27] LABS: ALT 20 U/L (8-44); AST 21 U/L (13-35); Albumin/Globulin Ratio 1.25 Ratio (1.60-3.17); Alkaline Phosphatase 91 U/L (41-126); Blood Urea Nitrogen 12.8 mg/dL (9.0-27.0); Calcium 9.9 mg/dL (8.7-10.3); Carbon Dioxide 29.2 mmol/L (21.6-31.8); Chloride 100 mmol/L (96-109); Globulin 3.2 g/dL (1.6-3.3); Glucose 96 mg/dL (70-110); Iron 43 UG/DL (50-170); Potassium 3.1 mmol/L (3.5-5.5); Sodium 143 mmol/L (135-145); Total Bilirubin 0.5 mg/dL (0.3-1.2); Total Protein 7.2 g/dL (6.2-8.2)
== END | disposition home or self-care (01) ==
LOC: LABWHC1 14:17
PROVIDERS: ATTEND Surgery
DX: E55.9 Vitamin D deficiency, unspecified (principal); K90.89 Other intestinal malabsorption
CPT/HCPCS: 36415; 80053; 82306; 82607; 82746; 83540; 84425; 85027

== ENCOUNTER → 2024-03-30 | Outpatient (CLI) | payer MEDICARE ==
[2024-03-30 13:31] VITALS: BP 149/89; PULSE 81; RESP 16; TEMP 97.6; BMI 46.4
--- NOTE | 2024-03-30 16:31 | P.BASOAP ---
Subjective Progress Note Date: 03/30/24 Principal diagnosis: Morbid obesity Patient doing well today. Last seen 5 to 6 weeks ago. Has done well with her weight loss in the meanwhile. She down 20 pounds since last visit. She is due for 1 month labs. She had 1 episode of vomiting with fried chicken. Otherwise doing well. Still takes antiacids. Few episodes of heartburn. Vital signs stable. Objective - Vital Signs Vital signs: Vital Signs Temp 97.6 F 03/30/24 13:28 Pulse 81 03/30/24 13:28 Resp 16 03/30/24 13:28 BP 149/89 03/30/24 13:28 Pulse Ox FiO2 Intake & Output 03/29/24 03/30/24 03/30/24 18:59 06:59 18:59 Weight 126.552 kg - Exam Abdomen: Soft, nondistended, incisions clean and dry, nontender Assessment/Plan (1) Morbid obesity with BMI of 50.0-59.9, adult Narrative/Plan: Patient doing well today. Great weight loss. Check 1 month labs. Follow-up 4 to 6 weeks. Continue dietary and exercise regimen. Plan: Date: 03/30/24 Initial Weight: 145.15 kg Initial BMI: 53.2 Current Weight: 126.552 kg Current BMI: 46.4 Type of Surgery: Vertical Sleeve Gastrectomy Total Volume in Band: Previous Volume: Volume Removed: Volume Added: Band Size:
== END ==
LOC: BARWHC3 12:59
PROVIDERS: ATTEND Surgery
DX: E66.01 Morbid (severe) obesity due to excess calories (principal); Z68.43 Body mass index [BMI] 50.0-59.9, adult; Z91.013 Allergy to seafood
CPT/HCPCS: 97803; G0463; 99211

== ENCOUNTER → 2024-03-31 | Outpatient (CLI) | payer MEDICARE ==
--- NOTE | 2024-03-31 09:46 | MM ---
Reason for Exam: Screening (asymptomatic). Last mammogram was performed 15 year(s) and 0 month(s) ago. Patient History: Menarche at age 11. First Full-Term at age 14. Left ovary removed at age 36. Right ovary removed at age 36. Hysterectomy at age 36. Postmenopausal. Risk Values: Mackenzie 5 year model risk: 1.3%. NCI Lifetime model risk: 8.0%. Prior Study Comparison: 04/30/2006 Bilateral Screening Mammogram, [facility]. 03/22/2009 Bilateral Screening Mammogram, [facility]. Tissue Density: The breasts are almost entirely fatty. Findings: Analyzed By CAD. Right breast: There is no suspicious group of microcalcifications or new suspicious mass. Left breast: There is no suspicious group of microcalcifications or new suspicious mass. Overall Assessment: Negative, BI-RAD 1 Management: Screening Mammogram of both breasts in [address] [facility] will attempt to contact patient to return for supplemental views and ultrasound if indicated. Patient should continue monthly self-breast exams. A clinical breast exam by your physician is recommended on an annual basis. This exam should not preclude additional follow-up of suspicious palpable abnormalities. Note on Mackenzie scores and lifetime risk: 1. A Mackenzie score greater than 3% is considered moderate risk. If this is the case, consider specialist referral to assess eligibility for a risk reducing agent. 2. If overall lifetime risk for the development of breast cancer is 20% or higher, the patient may qualify for future screening with alternating mammogram and breast MRI. [facility], , 03/31/2024 9:42 AM. Electronically signed and approved by: Adrian Mcgovern DO
== END | disposition home or self-care (01) ==
LOC: RADMAMWWP 09:15
PROVIDERS: ATTEND Internal Medicine Geriatric Medicine
DX: Z12.31 Encounter for screening mammogram for malignant neoplasm of breast (principal); R92.313 Mammographic fatty tissue density, bilateral breasts; Z78.0 Asymptomatic menopausal state
CPT/HCPCS: 77063; 77067